=== PATIENT | female | born 1960 | race Two or more races ===

== ENCOUNTER → 2017-01-17 | Outpatient (REF) | payer OTHER ==
[2017-01-17 13:27] LABS: YEAST LIKE CELL URINE AUTO SMALL
== END ==
LOC: M SMT 13:03
PROVIDERS: ATTEND Nurse Practitioner Women's Health
DX: R32 Unspecified urinary incontinence (principal)

== ENCOUNTER 2019-07-22 12:02 | Day surgery (SDC) | payer OTHER ==
[~2019-07-22] VITALS: Ht 160 cm; Wt 89.4 kg
[~2019-07-22 12:02] MED LIST: BRONCHW PO; D 1010004 PO; ENAL20TA PO; FLUO20CA19 PO; MIRA3350 PO; PRAV40TA2 PO; PROBCAP14 PO; SENN-83 PO; ZANT150T40 PO; [UNRECOGNIZED DRUG - OTHER] PO
[2019-07-22] MEDS ORDERED: NS 1,000 ML IV ONE (14:00)
[2019-07-22] MEDS ORDERED: PROPOFOL 200 MG/20 ML VIAL As Ordered ONE (14:41)
[2019-07-22] MEDS ORDERED: LIDOCAINE 2% INJ 100 MG/5 ML SDV (FOR ANES.) As Ordered ONE (14:41)
[2019-07-22] MEDS ORDERED: fentaNYL 100 MCG/2 ML INJECTION (J3010) As Ordered ONE (14:42)
--- NOTE | 2019-07-22 15:46 | ROOR ---
Patient Name: Ema Barber Procedure Date: 07/22/2019 2:57 PM Date of : 1960 Age: 59 Room: [facility] Gender: Female Note Status: Finalized Procedure: Upper GI endoscopy Indications: Heartburn Providers: Baldomero BROWN MD Referring MD: MARCELLE POWELL MD Requesting Provider: Medicines: Monitored Anesthesia Care Complications: No immediate complications. Procedure: Pre-Anesthesia Assessment: - The heart rate, respiratory rate, oxygen saturations, blood pressure, adequacy of pulmonary ventilation, and response to care were monitored throughout the procedure. The Endoscope was introduced through the mouth, and advanced to the second part of duodenum. The upper GI endoscopy was accomplished without difficulty. The patient tolerated the procedure well. Findings: Moderately severe esophagitis was found 36 cm from the incisors. Biopsies were taken with a cold forceps for histology. A moderate to large hiatal hernia was present. The exam of the stomach was otherwise normal. The examined duodenum was normal. Impression: - Moderately severe reflux esophagitis. Biopsied. - Moderate/Large hiatal hernia. - The stomach is otherwise normal. - Normal examined duodenum. Recommendation: - Use Protonix (pantoprazole) 40 mg PO daily indefinitely. - Discontinue Zantac (ranitidine). - (If Protonix/pantoprazole creates undesirable side effects, then consideration may be given to a referral for antireflux surgery.) - (the script was sent to your pharmacy on file) Baldomero Brown MD Baldomero BROWN MD 07/22/2019 3:45:36 PM Electronically signed by Baldomero BROWN MD Number of Addenda: 0 Note Initiated On: 07/22/2019 2:57 PM Estimated Blood Loss: Estimated blood loss: none.
[2019-07-22 15:50] VITALS: BP 162/105
== END 2019-07-22 15:57 | disposition home or self-care (01) ==
LOC: M OPP 12:02
PROVIDERS: ATTEND Internal Medicine Gastroenterology
DX: K21.0 Gastro-esophageal reflux disease with esophagitis (principal); K44.9 Diaphragmatic hernia without obstruction or gangrene; R12 Heartburn; Z79.899 Other long term (current) drug therapy
CPT/HCPCS: 43239; 88305; J3010